=== PATIENT | female | born 1960 | race Hispanic/Latino ===

== ENCOUNTER 2016-11-10 08:36 | Day surgery (SDC) | payer OTHER ==
[2016-11-10] MEDS ORDERED: Lidocaine Topical 2% 30 mL Jelly ONE (09:00)
== END 2016-11-10 23:59 | disposition home or self-care (01) ==
LOC: END 08:36
PROVIDERS: ATTEND Internal Medicine Gastroenterology
DX: R13.10 Dysphagia, unspecified (principal); Z53.09 Procedure and treatment not carried out because of other contraindication; K21.9 Gastro-esophageal reflux disease without esophagitis; R07.9 Chest pain, unspecified; R49.8 Other voice and resonance disorders